=== PATIENT | male | born 1950 | race Caucasian/White ===

== ENCOUNTER → 2017-06-04 | Outpatient (CLI) | payer MEDICARE, OTHER ==
--- NOTE | 2017-06-04 14:53 | RAD ---
EXAM DESCRIPTION: Hand,Left 3 Views CLINICAL HISTORY: BILATERAL HAND PAIN COMPARISON: None. IMPRESSION: 3 views of the left hand show no evidence of acute fracture, focal bone destruction, or joint dislocation. Mild narrowing of the interphalangeal joints is seen without significant joint line osteophytes suggesting mild osteoarthritic-type changes. Soft tissues are unremarkable. No periarticular erosive changes are seen. Electronically signed by: Jakob Lin MD 06/04/2017 2:52 PM CDT
--- NOTE | 2017-06-04 15:20 | RAD ---
EXAM DESCRIPTION: Hand,Right 3 Views CLINICAL HISTORY: BILATERAL HAND PAIN COMPARISON: None. IMPRESSION: 3 views of the right hand show no evidence of acute fracture, focal bone destruction, or joint dislocation. Mild joint space narrowing and joint line osteophytes of the interphalangeal joints of the first through fifth digits is seen consistent with mild to moderate osteoarthritic-type changes. No periarticular erosive changes are seen. Soft tissues are unremarkable. Moderate vascular calcifications are seen. Electronically signed by: Jakob Lin MD 06/04/2017 3:18 PM CDT
== END | disposition home or self-care (01) ==
LOC: RAD 09:38
PROVIDERS: ATTEND Orthopaedic Surgery
DX: M79.641 Pain in right hand (principal); M79.642 Pain in left hand

== ENCOUNTER 2017-08-29 06:03 | Day surgery (SDC) | payer MEDICARE, OTHER ==
[2017-08-29] MEDS ORDERED: ceFAZolin SODIUM 1 GM VIAL ONE (06:04)
[2017-08-29] MEDS ORDERED: SODIUM CHL 0.9% 100ML MINI-BAG 100 ML IVPB ONE (06:04)
[2017-08-29] MEDS ORDERED: LACTATED RINGERS 1,000 ML ONE (06:04)
[2017-08-29] MEDS ORDERED: BUPIVACAINE 0.25% INJ 30 ML VIAL INJ ONE (07:40)
[2017-08-29] MEDS ORDERED: LIDOCAINE 1% 50 ML VIAL INJ ONE (07:40)
[2017-08-29] MEDS ORDERED: fentaNYL CITRATE INJ 50 MCG/ML AMP ONE (09:29)
[2017-08-29] MEDS ORDERED: MIDAZOLAM INJ 2 MG/2 ML VIAL ONE (09:29)
[2017-08-29] MEDS: ceFAZolin SODIUM 1 GM VIAL ONE ×2 (09:59→10:10)
[2017-08-29] MEDS: VANCOMYCIN HCL INJ 1,000 MG VIAL IVPB ONE ×2 (09:59→10:10)
[2017-08-29] MEDS ORDERED: PROPOFOL 200 MG/20 ML VIAL IV ONE (10:00)
[2017-08-29] MEDS ORDERED: LIDOCAINE 1% 10 ML VIAL INJ ONE (10:00)
--- NOTE | 2017-08-29 10:41 | OP ---
DATE OF PROCEDURE: 08/29/17 PREOPERATIVE DIAGNOSIS: 1. Carpal tunnel syndrome. POSTOPERATIVE DIAGNOSIS: 1. Carpal tunnel syndrome. PROCEDURE: 1. Carpal tunnel release. SURGEON: Mehrdad Wilson MD. ACQUISITION ADVISOR: Isak Wei CST, SA-C. ANESTHESIA: Local with sedation. COMPLICATIONS: None. FINDINGS: 1. Narrowing of the median nerve across the carpal tunnel. 2. Thickening of the transverse carpal ligament. INDICATION: Mr. Banks has a long history of numbness in the hand that has been waking him up at night. He has tried conservative measures, however, has failed to gain relief from his carpal tunnel syndrome. After discussing the risks, benefits and alternatives to carpal tunnel release, the patient has given informed consent for carpal tunnel release. PROCEDURE: The patient was brought to the Operating Room and placed in the supine position. Sedation was administered and local anesthetic was injected into the operative area under sterile conditions. After the injection of anesthetic, the arm was sterilely prepped and draped. A longitudinal incision was made directly overlying the transverse carpal ligament and blunt dissection was carried down to the ligament. The transverse carpal ligament was sharply transected along its length and a [place] elevator was used to ensure complete release of the ligament. Once release had been confirmed, the wound was thoroughly irrigated and the wound was closed with Nylon suture. A sterile dressing was placed and the patient was taken to the Day Surgery Unit. POSTOPERATIVE INSTRUCTIONS: The patient has been encouraged to do range of motion of the digits and will followup with us in two days. #[id number] [facility]
[2017-08-29 11:02] VITALS: BP 128/68; TEMP 98.6; O2SAT 98
== END 2017-08-29 10:50 | disposition home or self-care (01) ==
LOC: AMB 06:03
PROVIDERS: ATTEND Orthopaedic Surgery
DX: G56.02 Carpal tunnel syndrome, left upper limb (principal); I10 Essential (primary) hypertension; I25.10 Atherosclerotic heart disease of native coronary artery without angina pectoris; E66.01 Morbid (severe) obesity due to excess calories; G47.30 Sleep apnea, unspecified; Z79.01 Long term (current) use of anticoagulants; Z79.899 Other long term (current) drug therapy
CPT/HCPCS: 01810; 36415; 64721; 87070; J0690; J2250; J3010; J3370; J3490; J7050; J7120

== ENCOUNTER → 2017-08-31 | Outpatient (CLI) | payer MEDICARE, OTHER | END | disposition home or self-care (01) | LOC: LAB.O 09:14 | PROVIDERS: ATTEND Orthopaedic Surgery | DX: Z01.812 Encounter for preprocedural laboratory examination (principal) ==

== ENCOUNTER 2017-09-11 05:41 | Day surgery (SDC) | payer MEDICARE, OTHER ==
--- NOTE | 2017-09-04 10:53 | HP ---
CHIEF COMPLAINT: Right carpal tunnel syndrome. HISTORY OF PRESENT ILLNESS: Mr. Banks is a 67-year-old male with a history of pain in the right hand with associated numbness. He has no trauma related to the onset of this, denies any radiation of pain and denies any neurologic symptoms proximal to the wrist. He has had left carpal tunnel release, which was successful for him. He is requesting right carpal tunnel release at this time. After discussing the risks, benefits and alternatives to that, the patient has given informed consent. PAST SURGICAL HISTORY: 1. Cardiac bypass. 2. Herniorrhaphy. 3. Left carpal tunnel release. MEDICATIONS: 1. Xarelto. 2. Atorvastatin. 3. Valsartan. 4. Coenzyme Q10. 5. Sotalol. ALLERGIES: NO KNOWN DRUG ALLERGIES. CODE STATUS: Full code. IMMUNIZATIONS: Up to date. SOCIAL HISTORY: The patient does not smoke or use any illicit drugs. He does drink on occasion. FAMILY HISTORY: None pertinent to today's complaint. REVIEW OF SYSTEMS: Negative except as indicated in the History of Present Illness. PHYSICAL EXAMINATION: VITAL SIGNS: Blood pressure 120/85. Pulse 62. Height 5'7". Weight 230. MENTAL STATUS: The patient is awake, alert, and is able to give a good history and participate in the physical. The patient is oriented to person, place and time. SKIN: Normal tone and turgor. MUSCULOSKELETAL: The bilateral upper extremities show full active range of motion. The are warm and well perfused. A he has positive Phalen's on the right and positive Tinel's on the right. [place] strength is 5/5. He has positive carpal compression test. He does have some slight thenar atrophy. ASSESSMENT: 1. Carpal tunnel syndrome. PLAN: The plan at this point is for carpal tunnel release. We have discussed the risks, benefits, and alternatives to that and the patient has given informed consent. #[id number] [facility]
[2017-09-11] MEDS ORDERED: SODIUM CHL 0.9% 100ML MINI-BAG 100 ML IVPB ONE (05:53)
[2017-09-11] MEDS: LACTATED RINGERS 1,000 ML ONE (08:00)
[2017-09-11] MEDS: ceFAZolin SODIUM 1 GM VIAL ONE ×2 (09:05→09:44)
[2017-09-11] MEDS: LIDOCAINE 1% 50 ML VIAL INJ ONE (09:15)
[2017-09-11] MEDS: BUPIVACAINE 0.25% INJ 30 ML VIAL INJ ONE (09:15)
[2017-09-11] MEDS: VANCOMYCIN HCL INJ 1,000 MG VIAL IVPB ONE (09:44)
[2017-09-11] MEDS ORDERED: PROPOFOL 200 MG/20 ML VIAL IV ONE (10:00)
[2017-09-11 10:15] VITALS: O2SAT 96
[2017-09-11 10:34] VITALS: BP 120/68; TEMP 97.3
--- NOTE | 2017-09-12 10:19 | OP ---
DATE OF PROCEDURE: 09/11/17 PREOPERATIVE DIAGNOSIS: 1. Carpal tunnel syndrome. POSTOPERATIVE DIAGNOSIS: 1. Carpal tunnel syndrome. PROCEDURE: 1. Carpal tunnel release. SURGEON: Mehrdad Wilson MD. BLOW MOLD TECHNICIAN: Isak Wei CST, -R[place]o. ANESTHESIA: Local with sedation. COMPLICATIONS: None. FINDINGS: Thenar atrophy with thickening of the transverse carpal ligament and narrowing of the median nerve across the carpal tunnel. INDICATION: Mr. Banks has a long history of symptoms consistent with carpal tunnel syndrome. He has had EMG confirmation of the presence of compression of the median nerve. Because of the ongoing nature of his symptoms and failure of conservative measures, he has requested operative intervention. After discussing the risks, benefits and alternatives to that, the patient has given informed consent for carpal tunnel release. PROCEDURE: The patient was brought to the Operating Room and placed in the supine position. Sedation was administered followed by local anesthetic. The arm was sterilely prepped and draped. A longitudinal incision was made directly overlying the transverse carpal ligament and blunt dissection was carried down to the ligament. The transverse carpal ligament was sharply transected along its length and a [place] elevator was used to ensure complete release of the ligament. Once release had been confirmed, the wound was thoroughly irrigated and the wound was closed with Nylon suture. A sterile dressing was placed and the patient was taken to the Day Surgery Unit. POSTOPERATIVE INSTRUCTIONS: The patient has been encouraged to do range of motion of the digits and will followup with us in two days. #[id number] [facility]
== END 2017-09-11 10:30 | disposition home or self-care (01) ==
LOC: AMB 05:41
PROVIDERS: ATTEND Orthopaedic Surgery
DX: G56.01 Carpal tunnel syndrome, right upper limb (principal); I10 Essential (primary) hypertension; K21.9 Gastro-esophageal reflux disease without esophagitis; E66.9 Obesity, unspecified; Z95.1 Presence of aortocoronary bypass graft; Z87.891 Personal history of nicotine dependence; Z79.01 Long term (current) use of anticoagulants; Z79.899 Other long term (current) drug therapy
CPT/HCPCS: 01810; 64721; J0690; J3370; J3490; J7050; J7120

== ENCOUNTER → 2018-03-01 | Outpatient (CLI) | payer MEDICARE, OTHER ==
--- NOTE | 2018-03-02 06:55 | US ---
EXAM DESCRIPTION: Carotid Duplex CLINICAL HISTORY: CAROTID BRUIT COMPARISON: None Available. TECHNIQUE: Carotid Doppler ultrasound FINDINGS: Right Submitted images show calcified plaque at the carotid bifurcation involving the origins of internal and external carotid arteries. Calcified plaque at the right carotid bulb is noted. Axial images show 34% area narrowing of the right carotid bulb and 24% area narrowing of the proximal right ICA above the bulb. Tortuous common carotid artery is noted with scattered plaque. The following flow velocities were obtained: Common carotid artery peak systolic flow velocity measures 74 centimeters per second. Internal carotid artery peak systolic flow velocity measures 81 centimeters per second. External carotid artery peak systolic flow velocity measures 96 centimeters per second. Flow in the right vertebral artery is antegrade. The right internal carotid to common carotid peak systolic flow velocity ratio equals 1.1 which is normal. Left Submitted images show calcified plaque in the left carotid bulb and at the origin of the left internal and external carotid arteries. Tortuosity of the left CCA is noted. Axial images show 39% area narrowing of the left carotid bulb. The following flow velocities were obtained: Common carotid artery peak systolic flow velocity measures 80 centimeters per second. Internal carotid artery peak systolic flow velocity measures 51 centimeters per second. External carotid artery peak systolic flow velocity measures 52 centimeters per second. Flow in the left vertebral artery is antegrade. The left internal carotid to common carotid peak systolic flow velocity ratio of 0.6 is normal. IMPRESSION: Arteriosclerotic plaque at the carotid bifurcations bilaterally. No hemodynamically significant stenosis. Electronically signed by: Chuy Wilkins MD 03/02/2018 6:54 AM CDT
== END ==
LOC: US 08:00
PROVIDERS: ATTEND Family Medicine
DX: I65.23 Occlusion and stenosis of bilateral carotid arteries (principal)

== ENCOUNTER → 2018-03-06 | Outpatient (CLI) | payer MEDICARE, OTHER ==
--- NOTE | 2018-03-07 17:03 | MRI ---
Procedure: MR KNEE WITHOUT IV CONTRAST Exam Date: 03/06/2018 12:00 AM CDT Ordering Provider: SRIKANTH MCKEON Clinical Indication: Right knee pain, injured knee going up stairs. Comparison: None TECHNIQUE: Multiplanar, multisequence MR images of the right knee were obtained. FINDINGS: ACL and PCL are intact. Oblique undersurface tearing of the posterior horn/body junction of the medial meniscus without flipped meniscal fragment. No extension of the posterior horn root attachment. No resultant chondrosis in the medial compartment. MCL is intact. The lateral meniscus is intact. Lateral compartment cartilage is without focal defect. Lateral collateral ligamentous complex is intact. Mild edema signal seen at the proximal patellar tendon near the insertion of the patellar inferior pole. Findings are compatible with mild tendinosis and Qdiqfuw-Sntvmg-Pgzrndvrw syndrome, so-called jumpers knee. Otherwise, the patellofemoral extensor mechanism is intact. Extensor mechanism is unremarkable. Patellofemoral compartment cartilage is intact. No large joint effusion or loose body seen. No [place] cyst appreciated. Bone marrow is otherwise unremarkable. IMPRESSION: 1. 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 2. Oblique undersurface tearing of the posterior horn and body junction of the medial meniscus without displaced meniscal fragment. Electronically signed by: Jimmy Hanna MD 03/07/2018 5:02 PM CDT
== END ==
LOC: MRI 13:50
PROVIDERS: ATTEND Family Medicine
DX: S83.241A Other tear of medial meniscus, current injury, right knee, initial encounter (principal)

== ENCOUNTER → 2018-06-13 | Outpatient (CLI) | payer MEDICARE, OTHER | LOC: GMAJ 14:55 | PROVIDERS: ATTEND Family Medicine | DX: M79.609 Pain in unspecified limb (principal) ==

== ENCOUNTER → 2018-10-18 | Outpatient (CLI) | payer MEDICARE, OTHER ==
--- NOTE | 2018-10-18 15:08 | RAD ---
EXAM DESCRIPTION: Chest,2 Views CLINICAL HISTORY: SOB COMPARISON: None TECHNIQUE: PA/lateral FINDINGS: Two views of the chest demonstrate a normal-sized heart with prior sternotomy and bypass surgery noted. The aorta is mildly tortuous. Lungs are adequately expanded and clear and vascularity is normal. No masses infiltrates or effusions are evident. The bony chest is unremarkable. IMPRESSION: No acute cardiopulmonary disease. Electronically signed by: Tyree Ventura MD 10/18/2018 3:07 PM [facility] [employer]
== END ==
LOC: LAB.O 14:27
PROVIDERS: ATTEND Nurse Practitioner Family
DX: R06.02 Shortness of breath (principal)

== ENCOUNTER → 2019-04-07 | Outpatient (CLI) | payer MEDICARE, OTHER | LOC: GMAJ 12:21 | PROVIDERS: ATTEND Family Medicine | DX: M25.50 Pain in unspecified joint (principal); R68.89 Other general symptoms and signs; R45.84 Anhedonia ==

== ENCOUNTER → 2019-10-14 | Outpatient (CLI) | payer MEDICARE, OTHER | LOC: GMAJ 10:46 | PROVIDERS: ATTEND Family Medicine | DX: M10.9 Gout, unspecified (principal); I10 Essential (primary) hypertension; E78.2 Mixed hyperlipidemia ==

== ENCOUNTER 2020-07-14 19:41 | Observation (INO) | payer MEDICARE, OTHER ==
[2020-07-14] MEDS ORDERED: MORPHINE SULFATE INJ 10 MG/ML VIAL IV ONE (19:49)
[2020-07-14] MEDS ORDERED: ONDANSETRON INJ 4 MG/2 ML VIAL IV ONE (19:50)
--- NOTE | 2020-07-14 19:58 | ED.PDOC ---
History of Present Illness - General Chief Complaint: Bite: Animal/Insect/Human Stated Complaint: something bit him a couple days ago Time Seen by Provider: 07/14/20 19:47 Source: patient, RN notes reviewed, Vital Signs reviewed Additional Information: 70 year-old male patient, presents to the ER with atraumatic left lower extremity pain and swelling, patient stated that he was working on his yard yesterday he felt something down on his leg. he didn think any of it, He tought that it could have been a sticker. He felt He went to work today and he was doing okay until 5 PM when he flet pain became excruciating on the left lower extremity patient arrived in a wheelchair was able to ambulate with limping on the affected extremity. Patient did not see any snakes and he stateda that he has never seen any snakes in his yard. No nausea no vomiting and no evidence of bleeding - History of Present Illness Timing/Duration: other - yesterday Severity: severe Improving Factors: nothing Worsening Factors: nothing Associated Symptoms: denies symptoms Allergies/Adverse Reactions: Allergies NO KNOWN ALLERGY Allergy (Verified 08/20/17 09:58) Home Medications: Ambulatory Orders Sotalol HCl 40 mg PO BID 08/22/17 Allopurinol 300 mg PO DAILY 07/14/20 Apixaban [Eliquis] 5 mg PO DAILY 07/14/20 Cephalexin Monohydrate [Keflex] 500 mg PO BID #14 cap 07/14/20 Levocetirizine Dihydrochloride [Levocetirizine Dihydrochl] 5 mg PO BEDTIME 07/14/20 Olmesartan Medoxomil-Hydrochlo [Benicar Hct 40-25 mg] 1 tab PO DAILY 07/14/20 Rosuvastatin Calcium [Crestor] 40 mg PO DAILY 07/14/20 Review of Systems - Review of Systems Constitutional: States: no symptoms reported EENTM: States: no symptoms reported Respiratory: States: no symptoms reported Cardiology: States: no symptoms reported Gastrointestinal/Abdominal: States: no symptoms reported Genitourinary: States: no symptoms reported Musculoskeletal: States: no symptoms reported Skin: States: no symptoms reported Neurological: States: no symptoms reported Endocrine: States: no symptoms reported Hematologic/Lymphatic: States: no symptoms reported Past Medical History (General) - Patient Medical History Hx Congestive Heart Failure: No Hx Diabetes: No Hx MRSA: No Family Medical History - Family History Mother Family History: No Known Physical Exam - Physical Exam General Appearance: Well Developed, Well Groomed, Well Hydrated, Well Nourished Eye Exam: bilateral normal Ears, Nose, Throat: hearing grossly normal, normal ENT inspection, normal pharynx Neck: non-tender, full range of motion, supple, normal inspection Respiratory: chest non-tender, lungs clear, normal breath sounds, no respiratory distress, no accessory muscle use Cardiovascular/Chest: normal peripheral pulses, regular rate, rhythm, no edema, no gallop, no JVD, no murmur Peripheral Pulses: radial,right: 2+, radial,left: 2+ Gastrointestinal/Abdominal: normal bowel sounds, soft, no organomegaly, no pulsatile mass Back Exam: normal inspection, no CVA tenderness, no vertebral tenderness Extremity: other - Normal sweating on the left lower extremity with some bruises also noted in the anterior chain and calf area, the lateral malleolus and swollen a Skin Exam: other - bruise Lymphatic: no adenopathy Progress - Progress Progress: Patient presents to the ER because of pain and swelling, no known evidence of insect bite or snakebite, patient looks well did have some pain, I did a d-dimer that was negative, fibrinogen was also negative, normal PT and normal platelet, patient ultrasound did not show evidence of DVT CTA of the leg did not show any acute arterial claudication, and no evidence of necrotizing fasciitis or abscess, patient has a left lower extremity cellulitis, patient did receive a dose of Zosyn his lumbosacral was elevated I discussed this case with the hospitalist so before admitting him I went back to the room and patient decided that he will rather go home and follow-up with Dr. Millard tomorrow home with pain medications and Keflex. Admit the patient but patient preferred to go home and be seen by his primary care physician tomorrow 07/14/20 22:46 Departure - Departure Clinical Impression: Cellulitis Qualifiers: Site of cellulitis: extremity Site of cellulitis of extremity: lower extremity Laterality: left Qualified Code(s): L03.116 - Cellulitis of left lower limb Disposition: Discharge to Home or Self Care Condition: Good Departure Forms: ED Discharge - Pt. Copy, Patient Portal Self Enrollment Instructions: DI for Animal Bites Diet: resume usual diet Referrals: Robbin Millard MD [Primary Care Provider] - 1-2 Weeks Prescriptions: Cephalexin Monohydrate [Keflex] 500 mg PO BID #14 cap Home Medications: Ambulatory Orders Sotalol HCl 40 mg PO BID 08/22/17 Allopurinol 300 mg PO DAILY 07/14/20 Apixaban [Eliquis] 5 mg PO DAILY 07/14/20 Cephalexin Monohydrate [Keflex] 500 mg PO BID #14 cap 07/14/20 Levocetirizine Dihydrochloride [Levocetirizine Dihydrochl] 5 mg PO BEDTIME 07/14/20 Olmesartan Medoxomil-Hydrochlo [Benicar Hct 40-25 mg] 1 tab PO DAILY 07/14/20 Rosuvastatin Calcium [Crestor] 40 mg PO DAILY 07/14/20
[2020-07-14] MEDS ORDERED: IBUPROFEN 200 MG TAB PO ONE (21:03)
[2020-07-14] MEDS ORDERED: PIPERACILLIN/TAZOBACTAM 3.375 GM in SODIUM CHLORIDE 0.9% 100ML 100 ML IVPB ONE (21:05)
--- NOTE | 2020-07-14 21:57 | US ---
EXAM DESCRIPTION: Venous, lower Extremity LT CLINICAL HISTORY: 70 years Male dvt COMPARISON: None. TECHNIQUE: Duplex imaging performed to evaluate the left lower extremity venous structures. Compression imaging and augmentation imaging performed. The common femoral, superficial femoral, popliteal, greater saphenous and posterior tibial veins were examined. FINDINGS: No thrombus is identified in the left lower extremity venous structures. IMPRESSION: No DVT is identified in the left lower extremity. Electronically signed by: Tyler Lal MD 07/14/2020 9:56 PM CDT
--- NOTE | 2020-07-14 22:34 | CT ---
PROCEDURE: CTA Lower Extremity CLINICAL HISTORY: 70 years Male left lower extremity pain COMPARISON: None. TECHNIQUE: Contiguous axial images obtained through the pelvis and bilateral lower extremities during the infusion of IV contrast. Reformatted images obtained. 3-D MIP reformatted images obtained. NASCET criteria utilized for the evaluation of any stenotic lesions. This exam was performed according to our department optimization program which includes automated exposure control, adjustment of the mA and/or kv according to patient size and/or use of iterative reconstruction technique. FINDINGS: Mild colonic diverticulosis. Fat-containing left inguinal hernia. Small hydroceles. Right leg: There is scattered calcific plaquing. No significant stenosis is visualized in the imaged portions of the right common iliac artery, right internal and external iliac arteries, right common femoral artery, right superficial femoral artery, and right popliteal artery. There appears to be fairly marked stenosis in some branches of the right deep femoral artery. The runoff vessels are suboptimally evaluated secondary to their small size and calcific plaquing. There is likely severe stenosis in the proximal right anterior tibial artery. The anterior tibial artery does not appear to fill into the foot. There is also likely severe stenosis involving the tibioperoneal trunk with severe stenosis in the proximal posterior tibial and peroneal arteries. The peroneal artery fills into the lower calf. The posterior tibial artery appears to fill into the foot. Left leg: There is scattered calcific plaquing. No significant stenosis is visualized in the imaged portions of the left common iliac artery, left internal and external iliac arteries, left common femoral artery, left superficial femoral artery, and left popliteal artery. There appears to be fairly marked stenosis in some branches of the left deep femoral artery. The runoff vessels are suboptimally evaluated secondary to small size and calcific plaquing. There is calcific plaquing in the proximal anterior tibial artery with probable severe stenosis. There is filling of the anterior tibial artery into the foot. There appears to be stenosis in the proximal portions of the posterior tibial and peroneal arteries. The peroneal artery fills into the lower calf. The posterior tibial artery fills into the foot. IMPRESSION: There is diffuse scattered atherosclerotic plaquing. No significant stenosis is visualized in the bilateral iliac arteries, femoral arteries and popliteal arteries. On the right, there appears to be severe stenosis at the origins of the runoff vessels. The peroneal artery and posterior tibial artery appear to fill into the foot. The anterior tibial artery does not definitely fill into the foot. On the left, there appears to be stenosis in the proximal runoff vessels. There appears to be filling of the anterior and posterior tibial arteries into the foot and the peroneal artery into the distal calf. Electronically signed by: Tyler Lal MD 07/14/2020 10:33 PM CDT
--- NOTE | 2020-07-14 22:51 | US ---
EXAM DESCRIPTION: Extremity, lower LT Arteries CLINICAL HISTORY: 70 years Male pain COMPARISON: None TECHNIQUE: Duplex imaging performed to evaluate the left lower extremity arterial structures. FINDINGS: There is triphasic flow in the left common femoral artery, superficial femoral artery, popliteal artery, left posterior tibial artery, left peroneal artery and in the dorsalis pedis artery. No focal velocity elevation is identified to suggest a focal severe stenotic lesion. IMPRESSION: No significant stenotic lesion is identified. Electronically signed by: Tyler Lal MD 07/14/2020 10:49 PM CDT
--- NOTE | 2020-07-14 23:35 | HP ---
SUPERVISING PHYSICIAN: Naomie Graves MD CHIEF COMPLAINT: Left lower leg pain. HISTORY OF PRESENT ILLNESS: This is a 70-year-old male patient who had been having some mild pain in his left lower leg. 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 He actually worked all day, but when he got home about 5 PM, the pain became much worse on his left lower extremity. He actually took a shower a then found he could not walk on it due to the pain. He also noticed that it was extremely red and his foot was extremely swollen. He denied any bites including a snake. In the Emergency Room, his initial vital signs were temperature 97.8, heart rate 93, blood pressure 156/81, respiratory rate 18, O2 saturation 99% on room air. Lab studies were done and his WBCs were 16,000 with a hemoglobin 14.5, hematocrit 43.3. D-dimer 134. Electrolytes were basically within normal limits and BUN was slightly elevated 31 with creatinine 1.05. C-reactive protein was 0.6. Urinalysis was unremarkable. No blood cultures were done. His left lower extremity venous Doppler showed on DVT identified in the left lower extremity. His left lower arterial Doppler showed no significant stenotic lesion identified. CTA of the left lower extremity showed diffuse scattered atherosclerotic plaquing, no significant stenosis visualized in the bilateral iliac arteries, femoral arteries and popliteal arteries. On the right, there appears to be severe stenosis at the origin of the runoff vessels. The peroneal artery and posterior tibial arteries appear to fill into his foot. Anterior tibial artery does not definitively fill into the foot. On the left, there appears to be stenosis in the proximal runoff vessels. There appears to be filling in the anterior and posterior tibial arteries into the foot and peroneal arteries into the distal calf. In the Emergency Room, he was given a tetanus booster as well as some vancomycin and Zosyn and he was admitted to the hospital in stable condition. PAST MEDICAL HISTORY: 1. Hyperlipidemia. 2. Hypertension. 3. Atrial fibrillation. 4. Carotid artery stenosis. 5. Coronary artery disease. 6. Sleep apnea. 7. Gout. PAST SURGICAL HISTORY: 1. Coronary artery bypass graft x4 vessels. 2. Hernia repair. 3. Perirectal abscess. 4. Eye surgery. 5. Bilateral carpal tunnel release. OUTPATIENT MEDICATIONS: 1. Allopurinol. 2. Eliquis. 3. Xyzal. 4. Olmesartan/hydrochlorothiazide. 5. Rosuvastatin. 6. Sotalol. ALLERGIES: NO KNOWN DRUG ALLERGIES. SOCIAL HISTORY: He is . He lives in [place]. He has 3 children. He used smokeless tobacco for over 40 years, but he quit in 2009. He drinks alcohol on a social basis only and denies any illicit drug use. REVIEW OF SYSTEMS: GENERAL: Negative for fever, fatigue or weight changes. HEENT: Negative for sinus symptoms, ear pain, vision changes or sore throat. RESPIRATORY: Negative for wheezing, coughing or shortness of breath. CARDIAC: Negative for chest pain, palpitations or tachycardia. GASTROINTESTINAL: Negative for nausea, vomiting, diarrhea, constipation. GENITOURINARY: Negative for hematuria, dysuria or polyuria. MUSCULOSKELETAL: Difficulty walking due to pain in his left leg, but no arthralgias, myalgias. SKIN: As per history of present illness. NEUROLOGIC: Negative for headache, weakness or seizures. PHYSICAL EXAMINATION: VITAL SIGNS: Temperature 100.4, heart rate 96, blood pressure 131/65. It drop to 99/64. Respiratory rate 21, O2 saturation 97% on room air. GENERAL: This is a 70-year-old male patient who is lying in his hospital bed. He is in no acute distress. HEENT: Normocephalic, atraumatic. Pupils are equal and reactive. Oropharynx is clear. NECK: Supple without mass. RESPIRATORY: Essentially clear to auscultation bilaterally. CHEST: There is equal rise and fall of the chest with inspiration and expiration. CARDIOVASCULAR: Regular rate and rhythm. GASTROINTESTINAL: Abdomen is soft, nondistended, nontender. Bowel sounds are positive. EXTREMITIES: His bilateral pedal pulses are +2. There is redness and edema noted to the left lower extremity as well as some ecchymotic areas from the ankle up to the calf. It has been marked and has decreased somewhat since he was in the ER. It is circumferential, but there is no drainage or fluctuance noted. NEUROLOGIC: Awake, alert and oriented times three. Cranial nerves II-XII are grossly intact as tested. SKIN: Warm and dry other than the bruising on his left lower extremity. LABORATORY: Labs and films are as per history of present illness. IMPRESSION: 1. Sepsis related to left lower extremity cellulitis with a temperature of 100.4, heart rate 96, respiratory rate 21 and WBCs 16,000. 2. History of atrial fibrillation on Eliquis and Sotalol. 3. Hyperlipidemia. 4. Hypertension. 5. Obstructive sleep apnea utilizing CPAP. 6. Coronary artery disease. 7. Gout. PLAN: The patient has been admitted to the hospital. He will get some judicious fluids as well as we will continue him on Rocephin and vancomycin per pharmacy protocol. I have ordered labs for in the morning. His home medications will be restarted. Eliquis will be sufficient for DVT prophylaxis and he has a proton pump inhibitor for ulcer prophylaxis. We will continue to measure his leg and watch for clinical improvement. We will also elevate his leg. His blood sugar was slightly elevated and I may order a hemoglobin A1c in the morning with his routine lab. Hopefully, he can be discharged in the next 24 to 48 hours on oral antibiotics and followup with Dr. Millard. #[id number] [facility]
[2020-07-15] MEDS ORDERED: ACETAMINOPHEN 325 MG TAB PO PRN (00:08)
[2020-07-15] MEDS ORDERED: ONDANSETRON INJ 4 MG/2 ML VIAL IV PRN (00:08)
[2020-07-15] MEDS ORDERED: MORPHINE SULFATE INJ 10 MG/ML VIAL IV PRN (00:08)
[2020-07-15] MEDS ORDERED: SODIUM CHLORIDE 0.9% (FLUSH) 10 ML SYG IV PRN (00:08)
[2020-07-15] MEDS ORDERED: TETANUS,DIPHTHERIA,PERTUSSIS 1 EA SYG IM ONE (00:23)
[2020-07-15] MEDS ORDERED: IV SET AND CAP CHANGE INJ INJ SCH (00:30)
[2020-07-15] MEDS ORDERED: VANCOMYCIN PER PHARMACY INJ SCH (00:30)
[2020-07-15] MEDS ORDERED: SODIUM CHL 0.9% 50ML MIN-BAG+ 50 ML IVPB ONE (00:45)
[2020-07-15] MEDS ORDERED: VANCOMYCIN HCL INJ 1,000 MG VIAL IVPB ONE (00:45)
[2020-07-15] MEDS ORDERED: SODIUM CHLORIDE 0.9% 250ML 250 ML ONE (00:45)
[2020-07-15] MEDS ORDERED: VANCOMYCIN HCL INJ 500 MG VIAL ONE (00:45)
[2020-07-15] MEDS ORDERED: cefTRIAXone SODIUM 1 GM VIAL ONE (00:45)
[2020-07-15] MEDS: cefTRIAXone SODIUM 1 GM in SODIUM CHL 0.9% 50ML MIN-BAG+ 50 ML IVPB SCH (00:47)
[2020-07-15] MEDS ORDERED: VANCOMYCIN HCL INJ 1,000 MG, VANCOMYCIN HCL INJ 500 MG in SODIUM CHLORIDE 0.9% 250ML 25... IVPB ONE (01:00)
[2020-07-15] MEDS: PANTOPRAZOLE SODIUM IV 40 MG VIAL IV SCH (06:07)
[2020-07-15] MEDS: BIFIDOBACTERIUM INFANTIS 4 MG CAP PO SCH (09:35)
[2020-07-15] MEDS: SOTALOL 80 MG TAB PO SCH ×2 (09:35→20:35)
[2020-07-15] MEDS: APIXABAN 5 MG TAB PO SCH (09:36)
[2020-07-15] MEDS: ALLOPURINOL 300 MG TAB PO SCH (09:36)
[2020-07-15] MEDS: SODIUM CHLORIDE 0.9% (FLUSH) 10 ML SYG IV SCH ×2 (09:36→20:35)
[2020-07-15] MEDS: VANCOMYCIN HCL INJ 1,000 MG, VANCOMYCIN HCL INJ 250 MG in SODIUM CHLORIDE 0.9% 250ML 25... IVPB SCH ×2 (11:49→23:30)
[2020-07-15] MEDS: OLMESARTAN MEDOXOMIL HYDROCHLO PO SCH (11:53)
[2020-07-15] MEDS ORDERED: ATORVASTATIN 20 MG TAB PO ONE (19:07)
[2020-07-15] MEDS ORDERED: CETIRIZINE HCL 10 MG TAB PO ONE (19:07)
[2020-07-15] MEDS: CETIRIZINE HCL 10 MG TAB PO SCH (20:35)
[2020-07-15] MEDS: ATORVASTATIN 20 MG TAB PO SCH (20:35)
[2020-07-15] MEDS: traMADol HCL 50 MG TAB PO PRN (20:59)
[2020-07-16] MEDS: cefTRIAXone SODIUM 1 GM in SODIUM CHL 0.9% 50ML MIN-BAG+ 50 ML IVPB SCH (01:24)
[2020-07-16] MEDS: PANTOPRAZOLE SODIUM IV 40 MG VIAL IV SCH (06:38)
[2020-07-16] MEDS ORDERED: MAGNESIUM SULFATE PREMIX 2GM 2 GM in PREMIX BAG 1 BAG IVPB ONE (08:36)
[2020-07-16] MEDS ORDERED: MAGNESIUM SULFATE PREMIX 2GM 50 ML IVPB ONE (08:58)
[2020-07-16] MEDS: BIFIDOBACTERIUM INFANTIS 4 MG CAP PO SCH (08:59)
[2020-07-16] MEDS: ALLOPURINOL 300 MG TAB PO SCH (08:59)
[2020-07-16] MEDS: APIXABAN 5 MG TAB PO SCH (08:59)
[2020-07-16] MEDS: SOTALOL 80 MG TAB PO SCH ×2 (08:59→20:22)
[2020-07-16] MEDS: SODIUM CHLORIDE 0.9% (FLUSH) 10 ML SYG IV SCH ×2 (09:00→20:22)
[2020-07-16] MEDS: OLMESARTAN MEDOXOMIL HYDROCHLO PO SCH (09:00)
[2020-07-16] MEDS: VANCOMYCIN HCL INJ 1,000 MG, VANCOMYCIN HCL INJ 250 MG in SODIUM CHLORIDE 0.9% 250ML 25... IVPB SCH (11:45)
--- NOTE | 2020-07-16 15:44 | PN ---
SUPERVISING PHYSICIAN: Naomie Graves MD DATE: 07/15/20 SUBJECTIVE: The patient is sitting up in bed. He says he is feeling much better. He could actually stand by the side of the bed and walk to the sink. He denies nausea, vomiting, chest pain or shortness of breath. OBJECTIVE: VITAL SIGNS: Temperature 97.5, heart rate 69, blood pressure 130/63, respiratory rate 16, O2 saturation 94% on room air. RESPIRATORY: Essentially clear to auscultation bilaterally. CARDIAC: Regular rate and rhythm. EXTREMITIES: His left lower leg is much improved. There is only a trace of edema to the lateral aspect of the lateral malleolus. The area of erythema on his left lower leg has receded greatly and is only slightly warm to the touch. It is circumferential, but it is much improved since the previous day. Bilateral pedal pulses are palpable at +2. NEUROLOGIC: Awake, alert and oriented times three. LABORATORY: WBCs 15.2, hemoglobin 11.9, hematocrit 34.4. Electrolytes are basically within normal limits except his magnesium is slightly low at 1.7. Hemoglobin A1c is 6.3. MICROBIOLOGY: Preliminary blood cultures show no growth to date. All other labs and films have been reviewed via the EMR. ASSESSMENT: 1. Sepsis related to left lower extremity cellulitis with a temperature of 100.4, heart rate 96, respiratory rate 21 and WBCs 16,000. 2. History of atrial fibrillation on Eliquis and Sotalol. 3. Hyperlipidemia. 4. Hypertension. 5. Obstructive sleep apnea utilizing CPAP. 6. Coronary artery disease. 7. Gout. PLAN: We will continue present supportive care. Hopefully, he can get another several doses of vancomycin and hope to discharge him tomorrow. We will hold on any labs as they have stabilized. We will send him home on some antibiotics. Continue to encourage good pulmonary hygiene. We will continue to monitor the patient closely and follow as needed. #[id number] [facility]
[2020-07-16] MEDS: traMADol HCL 50 MG TAB PO PRN (20:21)
[2020-07-16] MEDS: ATORVASTATIN 20 MG TAB PO SCH (20:21)
[2020-07-16] MEDS: CETIRIZINE HCL 10 MG TAB PO SCH (20:22)
[2020-07-16] MEDS: VANCOMYCIN HCL INJ 750 MG in SODIUM CHLORIDE 0.9% 250ML 250 ML IVPB SCH (22:30)
[2020-07-17] MEDS: cefTRIAXone SODIUM 1 GM in SODIUM CHL 0.9% 50ML MIN-BAG+ 50 ML IVPB SCH (00:30)
[2020-07-17] MEDS: traMADol HCL 50 MG TAB PO PRN (02:20)
[2020-07-17 06:14] VITALS: BP 132/70; TEMP 98.1; O2SAT 95
[2020-07-17] MEDS: PANTOPRAZOLE SODIUM IV 40 MG VIAL IV SCH (06:14)
[2020-07-17] MEDS: VANCOMYCIN HCL INJ 750 MG in SODIUM CHLORIDE 0.9% 250ML 250 ML IVPB SCH (07:26)
[2020-07-17] MEDS ORDERED: INFLUENZA VIRUS VACC (ADULT) 0.5 ML SYG IM ONE ×2 (08:32→08:34)
[2020-07-17] MEDS: BIFIDOBACTERIUM INFANTIS 4 MG CAP PO SCH (09:00)
[2020-07-17] MEDS: APIXABAN 5 MG TAB PO SCH (09:00)
[2020-07-17] MEDS: ALLOPURINOL 300 MG TAB PO SCH (09:00)
[2020-07-17] MEDS: OLMESARTAN MEDOXOMIL HYDROCHLO PO SCH (09:02)
[2020-07-17] MEDS: SOTALOL 80 MG TAB PO SCH (09:02)
[2020-07-17] MEDS: SODIUM CHLORIDE 0.9% (FLUSH) 10 ML SYG IV SCH (09:04)
--- NOTE | 2020-07-18 12:33 | DS ---
SUPERVISING PHYSICIAN: Stanislav Graves M.D. DISCHARGE DIAGNOSIS: 1. Sepsis related to left lower extremity cellulitis with a temperature of 100.4, heart rate 96, respiratory rate 21 and WBCs of 16,000. 2. History of atrial fibrillation on Eliquis and Sotalol. 3. Hyperlipidemia. 4. Hypertension. 5. Obstructive sleep apnea utilizing CPAP. 6. Coronary artery disease. 7. Gout. HISTORY OF PRESENT ILLNESS: This is a 70-year-old male patient who had been having some mild pain in his left lower leg. 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 He actually worked all day, but that evening he got home about 5:00 and the pain was much worse on his left lower extremity. He took a shower a found he could not walk on it due to the pain. He also noticed that it was extremely red and his foot was extremely swollen. He denied any bites including snakes or bugs that he knew of. In the Emergency Room, his initial vital signs were temperature 97.8, heart rate 93, blood pressure 156/81, respiratory rate 18, O2 saturation 99% on room air. Labs showed WBCs of 16,000 with hemoglobin of 14.5, hematocrit of 43.3. Electrolytes were basically within normal limits. His BUN was elevated 31 with creatinine 1.05. CRP was 0.6. Urinalysis was unremarkable. Blood cultures were done. His left lower extremity venous Doppler showed no DVT identified in the left lower extremity. His left lower arterial Doppler study showed no significant stenotic lesion. CTA of the left lower extremity showed diffuse scattered atherosclerotic plaquing. No significant stenosis visualized in the bilateral iliac arteries, femoral arteries and popliteal arteries. On the right, there appears to be severe stenosis at the origin of the runoff vessels. The peroneal artery and posterior tibial arteries appear to fill into his foot. Anterior tibial artery does not definitively fill into the foot. On the left, there appears to be stenosis in the proximal runoff vessels. There appears to be filling in the anterior and posterior tibial arteries into the foot and peroneal arteries into the distal calf. In the Emergency Room, he was given a tetanus booster as well as some vancomycin and Zosyn and he was admitted to the hospital in stable condition. HOSPITAL COURSE: He was admitted to the hospital in stable condition. He got some judicious fluids overnight and he was continued on Rocephin and vancomycin. His home medications were restarted. He is on Eliquis which was sufficient for his DVT prophylaxis. He was also placed on a PPI for ulcer prophylaxis. His leg was measured and he clinically improved over the next several days. We also elevated that leg. He continued on the vancomycin and Rocephin, and improved quite well. He actually got up and walked in the hallways the evening prior to discharge. Today, he will be discharged home in stable condition. LABORATORY: WBCs initially were 16,000 and today are 13,600 with hemoglobin of 14.5 and 43.3. On admission, it stayed at 12.6 and 37.2. He did have a left shift on his differential. Electrolytes were basically within normal limits. Magnesium was slightly low at 1.7. He did receive magnesium supplementation. Preliminary aerobic culture showed gram-negative rods. Other cultures showed no growth. RADIOLOGY: All of his radiology reports are per the History of Present Illness. DISCHARGE PLAN: The patient will be discharged home in stable condition. He is to resume his previous diet and increase his activity as tolerated. He is to elevate his leg as much as possible. He is to followup with Dr. Millard on 07/20/20 at 10:30 AM. In addition to his routine medications, he is to take Bactrim DS for 8 additional days. At the time of his followup, it is recommended that Dr. Millard check on his final results of his blood cultures. He is to return to the hospital or followup with Dr. Millard for any problems or complications. DISCHARGE MEDICATIONS: 1. Sotalol. 2. Benicar HCT. 3. Levocetirizine. 4. Allopurinol. 5. Crestor. 6. Eliquis. 7. Align. 8. Sulfa. #[id number] [facility]
== END 2020-07-17 09:30 | disposition home or self-care (01) ==
LOC: ER 19:41 → MS 23:34
PROVIDERS: ADMIT Nurse Practitioner Acute Care; ATTEND Nurse Practitioner Acute Care
DX: A41.9 Sepsis, unspecified organism (principal); L03.116 Cellulitis of left lower limb; I70.203 Unspecified atherosclerosis of native arteries of extremities, bilateral legs; M79.662 Pain in left lower leg; E83.42 Hypomagnesemia; I48.91 Unspecified atrial fibrillation; E78.5 Hyperlipidemia, unspecified; I10 Essential (primary) hypertension; G47.33 Obstructive sleep apnea (adult) (pediatric); I25.10 Atherosclerotic heart disease of native coronary artery without angina pectoris; M10.9 Gout, unspecified; Z79.01 Long term (current) use of anticoagulants; Z79.899 Other long term (current) drug therapy; Z99.89 Dependence on other enabling machines and devices; Z95.1 Presence of aortocoronary bypass graft; Z87.891 Personal history of nicotine dependence
CPT/HCPCS: 90471 ×2; 96366 ×2; 96367 ×2; 96365; 96375 ×2; 96376 ×3; J0696 ×3; 90674; J2270 ×2; J2405 ×2; J2543; J7050 ×10; J3370 ×10; A4216 ×5; J3475; 90715; 85379; 80048; 80053 ×2; 83036; 36415 ×6; 85384; 81001; 86140; 85025 ×3; 87040 ×2; G0008; 83735 ×2; 85730; 85610; 80202; 73706; 93971; 93926; 94760 ×4; 99285; G0378

== ENCOUNTER → 2020-09-21 | Outpatient (CLI) | payer MEDICARE, OTHER | LOC: GMAJ 14:07 | PROVIDERS: ATTEND Family Medicine | DX: E78.00 Pure hypercholesterolemia, unspecified (principal); M10.9 Gout, unspecified; I10 Essential (primary) hypertension ==